=== PATIENT | female | born 1990 | race Hispanic/Latino ===

== ENCOUNTER 2017-01-17 03:09 | Inpatient (IN) | payer OTHER ==
[~2017-01-17] VITALS: Ht 152.4 cm; Wt 87.5 kg
[2017-01-17 04:48] LABS: ADD MIUA? YES; BILIRUBIN NEGATIVE; BLOOD NEGATIVE; COLOR YELLOW ((YELLOW)); GLUCOSE (STRIP) NEGATIVE; KETONES NEGATIVE; LEUKOCYTES LARGE; NITRITE NEGATIVE; PROTEIN (STRIP) NEGATIVE; SPECIFIC GRAVITY 1.023 (1.000-1.030); UROBILINOGEN 0.2 MG/DL (0.2-1.0)
[2017-01-17 04:51] LABS: BACTERIA RARE /HPF; EPITHELIAL CELLS 1+ /HPF; MUCUS TRACE /LPF; RED BLOOD CELLS 0-5 /HPF (0-5); UCUL ADDED? YES; WHITE BLOOD CELLS 15-20 /HPF (0-5)
[2017-01-17 04:54] LABS: HEMATOCRIT 35.5 % (36.0-46.0); MCH 24.9 PG (29.0-34.0); MCHC 32.4 G/DL (30.0-36.0); MEAN PLAT.VOLUME 10.7 uM^3 (9.5-12.4); PLATELET COUNT 248 K/uL (156-360); RBC DIS.WIDTH-CV 19.6 % (11.8-14.6); RBC DIS.WIDTH-SD 54.4 % (39-53); RED BLOOD COUNT 4.61 M/uL (3.80-5.20); WHITE BLOOD COUNT 12.5 K/uL (4.1-10.2)
[2017-01-17 05:02] LABS: CHLORIDE 109 mEq/L (99-109); POTASSIUM 3.8 mEq/L (3.7-5.4); SODIUM 142 mEq/L (136-147)
[2017-01-17 05:04] LABS: GLUCOSE 86 mg/dL (70-99)
[2017-01-17 05:05] LABS: ANION GAP 10 MEQ/L (2-14)
[2017-01-17 05:07] LABS: SERUM ETHYL ALCOHOL < 10 mg/dL
[2017-01-17 05:09] LABS: UREA NITROGEN (BUN) 12 mg/dL (9-23)
[2017-01-17 05:13] LABS: AMPHETAMINE NEGATIVE (500 ng/mL); BARBITURATES NEGATIVE (200 ng/mL); BENZODIAZEPINES NEGATIVE (150 ng/mL); COCAINE NEGATIVE (150 ng/mL); INTERNAL CONTROLS VALID? YES; METHADONE NEGATIVE (200 ng/mL); METHAMPHETAMINE NEGATIVE (500 ng/mL); OPIATES (MORPHINE) NEGATIVE (100 ng/mL); OXYCODONE NEGATIVE (100 ng/mL); PHENCYCLIDINE NEGATIVE (25 ng/mL); PROPOXYPHENE NEGATIVE (300 ng/mL); THC CANNABINOIDS PRESUMPTIVE POSITIVE (50 ng/mL); TRICYCLIC ANTIDEPRESSANTS NEGATIVE (300 ng/mL)
[2017-01-17 05:14] LABS: ADD MEDTOX COMMENT Y
[2017-01-17 05:16] LABS: QUANTITATIVE HCG < 4.0 MIU/ML
[2017-01-17 05:18] LABS: GFR ESTIMATE (CALCULATED) > 59 mL/min/
[2017-01-17] MEDS ORDERED: OMEPRAZOLE40 M1 PO (15:50)
[2017-01-17] MEDS ORDERED: DEPAKOTE500 MG PO (15:50)
[2017-01-17] MEDS ORDERED: ACID CONTROLLER20 MG PO (15:51)
[2017-01-17] MEDS ORDERED: TOPAMAX25 MG PO (15:51)
[2017-01-17] MEDS ORDERED: PANTOPRAZOLE SO40 MG PO (15:51)
[2017-01-17] MEDS ORDERED: ZYPREXA20 MG PO (15:51)
[2017-01-17] MEDS ORDERED: BACLOFEN10 MG PO (15:52)
[2017-01-17] MEDS ORDERED: CELEXA20 MG PO ×2 (15:52→17:58)
[2017-01-17] MEDS ORDERED: FERROUS SULFAT140 MG PO (15:53)
[2017-01-17 16:10] VITALS: BP 112/69
[2017-01-17] MEDS ORDERED: QUETIAPINE FUMA50 MG PO (18:00)
[2017-01-17] MEDS ORDERED: ZANAFLEX4 M1 PO (18:02)
[2017-01-17] MEDS ORDERED: TOPIRAMATE25 MG PO (18:04)
[2017-01-17] MEDS ORDERED: HYDROXYZINE HCL50 MG PO (18:05)
[2017-01-17] MEDS ORDERED: BUSPIRONE HCL10 MG PO (18:06)
[2017-01-18 07:52] VITALS: BP 107/63
[2017-01-19 10:03] VITALS: BP 124/82
[2017-01-19 15:35] VITALS: BP 137/76
[2017-01-20 08:16] VITALS: BP 118/69
[2017-01-20 16:02] VITALS: BP 121/79
[2017-01-21 08:03] VITALS: BP 128/76
[2017-01-21 15:51] VITALS: BP 108/72
[2017-01-22 08:01] VITALS: BP 125/90
[2017-01-23 08:11] VITALS: BP 133/80
[2017-01-23] MEDS ORDERED: DEPAKOTE500 MG PO (10:00)
[2017-01-23] MEDS ORDERED: ZYPREXA20 MG PO (10:00)
[2017-01-23] MEDS ORDERED: CLONAZEPAM1 MG PO (10:00)
[2017-01-23] MEDS ORDERED: LITHIUM CARBON300 M2 PO (10:00)
[2017-01-23] MEDS ORDERED: TOPIRAMATE25 MG PO (10:00)
[2017-01-23] MEDS ORDERED: DEPAKOTE ER250 MG PO (10:19)
[2017-01-24 07:39] VITALS: BP 121/55
== END 2017-01-24 14:38 | disposition home or self-care (01) | DRG 885 ==
LOC: EME 03:09 → 1WEST 12:44 → EDOF 12:44 → ENRESERV 16:02 → 1WEST 16:02
PROVIDERS: Emergency Medicine
DX: F31.2 Bipolar disorder, current episode manic severe with psychotic features (principal); F12.20 Cannabis dependence, uncomplicated; F17.200 Nicotine dependence, unspecified, uncomplicated
CPT/HCPCS: 80048; 80164; 81003; 84702; 84999; 85027; 87086; 90837; 97150 GO; 97166 GO; 99281; 99285; G0480; J1200; J1630; J2060; Q0177